=== PATIENT | female | born 1980 | race Caucasian/White ===

== ENCOUNTER 2018-12-18 18:27 | Inpatient (IN) | payer OTHER, SELFPAY ==
[2018-12-18 18:28] VITALS: BP 136/78; PULSE 96; RESP 16; TEMP 36.5; BMI 26.9
--- NOTE | 2018-12-18 19:17 | CT_ITS ---
We are attempting to reach an attending provider to discuss findings. An addendum with communication details will be sent when the communication is complete. STUDY: CT ABDOMEN AND PELVIS WITHOUT CONTRAST REASON FOR EXAM: Female, 38 years old. Right lower quadrant pain RADIATION DOSAGE (If Supplied By Facility): DLP = ( 315.65 ) mGycm TECHNIQUE: Transaxial images were obtained from the dome of the diaphragm to the symphysis pubis without oral contrast, and without intravenous contrast. Sagittal and coronal images were reconstructed. Individualized dose optimization techniques were used for this CT. COMPARISON: None. FINDINGS: Evaluation of the abdominal viscera is limited in the absence of intravenous contrast. Bibasilar atelectasis is present. The visualized portions of the heart and pericardium are within normal limits. The gallbladder has been removed. The liver demonstrates an unremarkable unenhanced appearance. The spleen is normal in size. The pancreas demonstrates an unremarkable unenhanced appearance. The adrenal glands are within normal limits. There are no obstructing renal stones. There is no hydronephrosis. Normal visualized stomach. There is no bowel obstruction or inflammation. There is increased diameter of the appendix measuring 1.4 cm, with a thickened wall, an appendicolith, and periappendiceal inflammatory changes. There is trace pelvic free fluid and trace right lower quadrant free fluid. The aorta is normal in caliber. There is no abdominal or pelvic free air, fluid collection or lymphadenopathy. There are no destructive osseous lesions. CT/Abdomen/Pelvis without Cont IMPRESSION: Acute appendicitis as detailed above. Electronically Signed: Malvin Dickerson, at 20:29 EDT Tel , Service support ,
[2018-12-18 19:29] LABS: Bacteria 0 SEEN /hpf (None Seen); Mucous, Urine 0 SEEN /hpf (<or=2+); White Blood Cells 0 SEEN /hpf (0-5)
[2018-12-18 19:44] LABS: Color, Urine Yellow (Yellow); Glucose, Dipstick Normal (Normal); Ketone-Dipstick Negative (Negative); Leukocyte Esterase-Dipstick Negative /ul (Negative); Nitrite-Dipstick Negative (Negative); Occult Blood-Urine 25 /ul (Negative); Protein-Dipstick Negative (Negative); Specific Gravity, Urine 1.005 (1.002-1.030); Urine Bilirubin Dipstick Negative (Negative); Urine Clarity Clear (Clear); Urine Urobilinogen Normal (Normal)
[2018-12-18] MEDS: Morphine 4 MG/ML Syringe IV (19:45)
[2018-12-18] MEDS: Ondansetron 4 MG/2 ML Vial IV (19:45)
[2018-12-18] MEDS: 0.9% Normal Saline 1,000 ML 1000 ML IV (19:45)
[2018-12-18 19:52] LABS: Red Blood Cells-Urine 0-5 SEEN /hpf (0-5); Squamous Epithelial Cells - UA 0-5 SEEN /hpf (5-10)
[2018-12-18 19:57] LABS: Internal QC Validated? YES +Cl - CLEAR BKGD; Pregnancy, Serum, hCG Quali. NEGATIVE Negative
[2018-12-18 19:59] LABS: Absolute Lymphocyte Count 4.64 X10^3/uL (0.83-4.51); Absolute Neutrophil Count 18.6 X10^3/uL (2.0-7.7); Basophil# 0.08 X10^3/uL; Basophil% 0.3 % (0-1); Eosinophil# 0.16 X10^3/uL; Eosinophils% 0.6 % (0-5); Hematocrit 38.8 % (37-47); Hemoglobin 13.1 g/dL (12.0-15.0); Lymphocyte # 4.64 X10^3/ul (4.0); Lymphocyte % 18.7 % (19-41); Mean Corp Hgb Conc 33.8 g/dL (32-36); Mean Corpuscular Hgb 33.2 pg (27.0-32.0); Mean Corpuscular Volume 98.5 fL (81-99); Mean Platelet Vol. 11.6 fl (6.2-12.0); Monocyte# 1.13 X10^3/uL; Monocyte% 4.6 % (0-10); NRBC Flagged by Analyzer 0 % (0-5); Neutrophil # 18.61 X10^3/uL (2.7-7.7); Neutrophil % 75.3 % (47-70); Platelet Count 268 K/mm3 (150-450); RBC Distribution Width CV 13.1 % (11.6-14.6); RBC Distribution Width SD 46.8 fl (35.1-43.9); Red Blood Count 3.94 M/mm3 (4.2-5.4); White Blood Count 24.8 K/mm3 (4.4-11.0)
[2018-12-18 20:04] LABS: ALB/GLOB Ratio 0.8 RATIO (0.9-2.4); AST(SGOT) 10 U/L (15-37); Alanine Aminotransfer ALT/SGPT 11 U/L (13-56); Albumin, Serum 3.4 g/dL (3.2-5.0); Alkaline Phosphatase 77 U/L (45-117); Anion Gap 3 (5-15); BUN 5 mg/dL (7-18); BUN/Creat Ratio 6.4 RATIO (10-20); Calcium,Total 8.9 mg/dL (8.5-10.1); Chloride 107 mmol/L (98-107); Creatinine, Serum 0.78 mg/dL (0.55-1.02); EST Glomerular Filtration Rate 87 mL/min (>60); Est Glom Filt Rate - Afr Amer 105 mL/min (>60); Estimated Creatinine Clearance 72.35 ml/min; Globulin 4.2 g/dL (2.2-4.2); Glucose 82 mg/dL (74-106); Potassium 3.9 mmol/L (3.5-5.1); Protein, Total 7.6 g/dL (6.4-8.2); Sodium Level 137 mmol/L (136-145)
--- NOTE | 2018-12-18 20:39 | ED.VISSUMM ---
- ER Visit Summary Date of Service: 12/18/18 Chief Complaint: Lower abdominal pain History of Present Illness: The patient is a 38 F who presents with lower abdominal pain that is been getting worse over the past couple days. Patient states her pain is sharp and cramping at times. Patient states it is a constant dull ache but sharp and cramping at times. Patient states the pain began diffusely but is now worse in the lower abdomen and worse on the right. Patient states the pain is worse with coughing. Patient admits to nausea but denies any vomiting. Patient states she did have an episode of diarrhea today. Patient states she has a history of ovarian cyst and thinks this is related to her ovary. Physical Examination: Vital signs are stable. Patient is afebrile. Patient is in no acute distress. Oral mucosa is pink and moist. Neck is supple. Trachea is midline. There is no JVD noted. Heart was regular rate and rhythm. Lungs are clear and equal bilaterally. Abdomen is soft. Bowel sounds are normal. There is diffuse tenderness but worse in the right lower quadrant. There is pain with internal and external rotation of the right lower extremity. There is a Rovsing sign noted. Cranial nerves II through XII are intact. There are no focal motor or sensory deficits noted. Test Results: CBC showed leukocytosis of 24.8. Metabolic profile was within normal limits. Urinalysis does not show any evidence of urinary tract infection. CT scan of the abdomen and pelvis was obtained and shows evidence of appendicitis. The appendix is measuring 1.4 cm with a thickened wall, and appendicolith, and periappendiceal inflammatory changes. Emergency Department Course and Treatment: Patient was given IV fluids, morphine, and Zofran here. Patient was feeling better on reevaluation. Patient was advised of the findings. Patient stated that her mom sees Dr. Hernandez for general surgery and she is requesting to see him. He is corrections sergeant tonight. I discussed the case with Dr. Hernandez. He will be in to evaluate the patient. Disposition: Admit to hospital Impression: Acute appendicitis This note was generated with [employer] dictation software. It may contain incorrect words, spelling, and punctuation that were not noted in review of the chart prior to signing ED Disposition - Plan for ED Patient: Disposition: Acute Care Hospital [facility] Diagnosis: Acute appendicitis Referrals: [facility] Doctor,Out of [Primary Care Provider] -
--- NOTE | 2018-12-18 21:02 | PCM.HP.STD ---
Problem List (1) Acute appendicitis Status: Acute Qualifiers: Acute appendicitis type: with localized peritonitis Appendicitis gangrene presence: unspecified whether gangrene present Appendicitis perforation presence: unspecified whether perforation present Appendicitis abscess presence: unspecified whether abscess present Qualified Code(s): K35.30 - Acute appendicitis with localized peritonitis, without perforation or gangrene History of Present Illness Date of Admission: 12/18/18 The patient is a 38 year old F who presents to the [facility] emergency room with almost a 1 week history of right lower quadrant abdominal pain. She has not been globally feeling well for at least 3 weeks. She is being treated by her primary care physician for a left breast abscess. She was placed on clindamycin 300 mg orally twice daily and she completed that medicine 2 days ago. She is to have a left breast ultrasound per her primary care physician with ongoing primary care follow-up. Because of severe right lower quadrant pain that is progressed over several days she presented to the emergency room here tonight.Her CT scan demonstrates a markedly inflamed appendix very thick-walled appendix with a appendicolith. There is periappendiceal inflammatory changes. There is free fluid in the pelvis. To make matters even more complicated the patient has had a previous incisional hernia repaired at the umbilical level with mesh. That was done in [facility]. Apparently there were complications and she had a redo operation to remove the mesh. She is also had a laparoscopic cholecystectomy she is also had a tubal ligation. She is at least a 1 pack/day cigarette smoker. Her laboratories dramatically abnormal with a white blood cell count of 24.8 hemoglobin 13.1 hematocrit 38.8 platelet count 268,075% neutrophils 18% lymphocytes. Her BUN is 5 and creatinine 0.78. Urinalysis is not remarkable. Past Medical History Allergies Iodinated Contrast- Oral and IV Dye Allergy (Verified 12/18/18 18:31) Hives Home Medications: Ambulatory Orders Medication Instructions Recorded NK 12/18/18 Surgical History: cholecystectomy, herniorrhaphy, - - Tubal ligation, hernia mesh removal Smoking Status: Current every day smoker Review of Systems Constitutional: Reports: Fever, Malaise, Weakness HEENT: Denies: Difficulty Swallowing Cardiovascular: Denies: Chest Pain Respiratory: Reports: Cough - Chronic Gastrointestinal: Reports: Abdominal Pain, Constipation Endocrine: Denies: Change in Body Habitus VTE Information - Inpt Only VTE Present on Admission: No Patient Problems: Active and Suspected Problems Acute appendicitis (Acute) - Physical Exam General: Alert, - - Patient appears very uncomfortable HEENT: Atraumatic Oral: Dry Mucosa Neck: Supple Lungs: - - Increased anterior posterior diameter, clear in the apices, diminished in the bases Cardiovascular: Regular rate, Regular Rhythm Abdomen: Bowel Sounds Present, Soft, Distended, Tender - Tender to light palpation of the right lower quadrant with guarding and rebound Healed vertical incision at the umbilicus very broad extending from superior to the umbilicus to inferiorly. Healed vertical incision in the mid epigastrium healed transverse incision right upper quadrant Extremities: No Calf Tenderness Skin: No rashes Psych/Mental Status: Flat Affect Vital Signs Temp Pulse Resp BP 97.7 F L 96 16 136/78 H 12/18/18 18:28 12/18/18 18:28 12/18/18 18:28 12/18/18 18:28 Weight: 142 lb 6.698 oz Body Mass Index (BMI) 26.9 Laboratory Tests Past 24 Hrs 12/18/18 12/18/18 12/18/18 18:40 19:30 19:30 WBC 24.8 H RBC 3.94 L Hgb 13.1 Hct 38.8 MCV 98.5 MCH 33.2 H MCHC 33.8 RDW Std Deviation 46.8 H RDW Coeff of Michelle 13.1 Plt Count 268 MPV 11.6 Immature Gran % (Auto) 0.500 Neut % (Auto) 75.3 H Lymph % (Auto) 18.7 L [place] % (Auto) 4.6 Eos % (Auto) 0.6 Baso % (Auto) 0.3 Absolute Neuts (auto) 18.6 H Absolute Lymphs (auto) 4.64 H Nucleated RBC % 0 Sodium 137 Potassium 3.9 Chloride 107 Carbon Dioxide 27.0 Anion Gap 3 L BUN 5 L Creatinine 0.78 Estim Creat Clear Calc 72.35 Est GFR (MDRD) Af Amer 105 Est GFR (MDRD) Non-Af 87 BUN/Creatinine Ratio 6.4 L Glucose 82 Calcium 8.9 Total Bilirubin 0.50 AST 10 L ALT 11 L Alkaline Phosphatase 77 Total Protein 7.6 Albumin 3.4 Globulin 4.2 Albumin/Globulin Ratio 0.8 L Serum , Qual Urine Color Yellow Urine Clarity Clear Urine pH 6.0 Ur Specific [place] 1.005 Urine Protein Negative Urine Glucose (UA) Normal Urine Ketones Negative Urine Occult Blood 25 H Urine Nitrite Negative Urine Bilirubin Negative Urine Urobilinogen Normal Ur Leukocyte Esterase Negative Urine RBC 0-5 SEEN Urine WBC 0 SEEN Ur Squamous Epith Cells 0-5 SEEN Urine Bacteria 0 SEEN Urine Mucus 0 SEEN 12/18/18 19:30 WBC RBC Hgb Hct MCV MCH MCHC RDW Std Deviation RDW Coeff of Michelle Plt Count MPV Immature Gran % (Auto) Neut % (Auto) Lymph % (Auto) [place] % (Auto) Eos % (Auto) Baso % (Auto) Absolute Neuts (auto) Absolute Lymphs (auto) Nucleated RBC % Sodium Potassium Chloride Carbon Dioxide Anion Gap BUN Creatinine Estim Creat Clear Calc Est GFR (MDRD) Af Amer Est GFR (MDRD) Non-Af BUN/Creatinine Ratio Glucose Calcium Total Bilirubin AST ALT Alkaline Phosphatase Total Protein Albumin Globulin Albumin/Globulin Ratio Serum , Qual NEGATIVE Urine Color Urine Clarity Urine pH Ur Specific [place] Urine Protein Urine Glucose (UA) Urine Ketones Urine Occult Blood Urine Nitrite Urine Bilirubin Urine Urobilinogen Ur Leukocyte Esterase Urine RBC Urine WBC Ur Squamous Epith Cells Urine Bacteria Urine Mucus Assessment/Plan All Active Problems Acute appendicitis (Acute) Findings are consistent with severe acute appendicitis with concern over localized peritonitis and possible gangrene and rupture. In addition she has a hostile abdomen with history of ventral incisional hernia repair with mesh with subsequent mesh removal. She has a ongoing chronic tobacco smoker placing her at increased pulmonary and DVT risk. We will initiate IV antibiotics. I discussed with her the potential for a laparoscopic appendectomy. She is aware of the increased difficulty gaining clean access to the abdomen. She is aware that extensive adhesions may be encountered. She is aware that conversion to an open procedure may be required. She is aware that partial colectomy may be required. She is aware that simple drainage may be performed. She has had an opportunity to ask and have questions answered. We will proceed tonight as OR staffing permits. Alfonso Hernandez M.D., F.A.C.S.
[2018-12-18 21:11] VITALS: BP 146/88; PULSE 93; RESP 18; TEMP 37.3; O2SAT 99
[2018-12-18 21:12] VITALS: BP 146/88; PULSE 93; RESP 18; TEMP 37.3; O2SAT 99; BMI 26.9
--- NOTE | 2018-12-18 21:45 | APP_PTH ---
PATIENT: MINERVA BERGER LOC: MS3 U#:[id number] AGE/SX: 38/F ROOM: [facility] RE12/18/[address]: Dr. Alfonso Hernandez MD : 1980 BED: 1 DIS: 12/23/2018 SPEC #: [id number] RECD: 12/19/18 08:19 STATUS: POLA ABNER #: [id number] JEFFERY: 12/18/18 21:[address]: Alfonso Hernandez DEPT: SURGICAL PATHOLOGY RECD BY: Yaya Lester ENTERED: 12/19/18 09:39 SP TYPE: APPENDIX OTHR DR: No Primary Care Phys Tissues: Appendix, NOS Procedures: Surgery Specimen Level III HEADER OPERATION: Laparoscopic appendectomy PRE-OP DIAGNOSIS: Acute appendicitis TISSUE SUBMITTED: Appendix MICROSCOPIC DIAGNOSIS Appendix: Acute appendicitis and periappendicitis. SJ:frandy 12/20/18 MICROSCOPIC DESCRIPTION Slides are reviewed. GROSS DESCRIPTION Received is one container labeled with the patient's name and designated appendix. The specimen consists of an appendix measuring 6 cm in length and up to 1 cm in diameter. The attached periappendiceal adipose tissue measures up to 1.5 cm in width. The serosa is congested and appear hemorrhagic. No obvious perforation is identified. The lumen does not contain any fecalith. Pharmacy Customer Care Specialist sections are submitted in one cassette. / SJ:frandy 12/19/18 TC:2 CPT: 30802
--- NOTE | 2018-12-18 22:09 | PCM.DC.GS ---
Discharge Diet: Light diet - advance as tolerated - if you have questions about your diet instructions, please talk to you doctor. Discharge Activity: May Not Drive - for 3-5 days or while taking narcotic pain medicine. May shower in (days): 0 - May shower now Lifting Restrictions: 10 pounds Call your doctor if your incision/area has: Continuous Slow Oozing, Sudden Increased Bleeding, Increased Pain/ Swelling, Increased Redness, Foul Smelling Discharge Call your doctor if you observe: Fever of 101 or Higher Suture Line Care: Avoid Pulling/Pushing, Avoid Pinching/Bending Additional Dressing/Incision Instructions:: Change or remove dressing in 2 days. Leave steri-strips in place for 1 week. Allergies/Adverse Reactions: Allergies Iodinated Contrast- Oral and IV Dye Allergy (Verified 12/18/18 18:31) Hives Medications to take at Discharge Amoxicillin/Potassium Clav [Augmentin 875-125 Tablet] 1 ea PO BID #10 tab 12/21/18 Hydrocodone Bitart/Apap 5-325 [[place] 5MG-325MG] 1 tablet PO Q4H PRN PRN 3 Days #10 tablet 12/21/18 The following prescriptions were given: Amoxicillin/Potassium Clav [Augmentin 875-125 Tablet] 1 ea PO BID #10 tab Transmission Status: Pending to [facility] Hydrocodone Bitart/Apap 5-325 [[place] 5MG-325MG] 1 tablet PO Q4H PRN PRN 3 Days #10 tablet PRN Reason: Pain Transmission Status: Sent to [facility] Primary Care Physician: [facility] Doctor,Out of [Primary Care Provider] - Test Results: Test results from this visit will be discussed in further detail at your follow-up appointment, if applicable. Please Follow Up With: Alfonso Hernandez MD - [phone] When: Call to make an appointment to be seen in about 7-10 days.
[2018-12-18] MEDS: Bupivacaine Mpf 0.5% 30 ML VIAL (22:57)
--- NOTE | 2018-12-18 23:01 | OP.PCM_ITS ---
Problem List (1) Acute appendicitis Status: Acute Qualifiers: Acute appendicitis type: with localized peritonitis Appendicitis gangrene presence: with gangrene Appendicitis perforation presence: with perforation Appendicitis abscess presence: without abscess Qualified Code(s): K35.32 - Acute appendicitis with perforation and localized peritonitis, without abscess Report of Operation Date of Procedure: 12/18/18 Pre-Operative Diagnosis: Acute appendicitis Post-Operative Diagnosis: Acute appendicitis with feculent peritonitis and local perforation and stool feculent soilage Surgery/Procedure Performed:: Laparoscopic appendectomy Description of Surgical Findings:: Timeout and informed consent was obtained. 38-year-old female stepped out from placement table underwent general endotracheal intubation anesthesia. She had been started on therapeutic Zosyn 4.5 g intravenously preoperatively. The M sterilely prepped draped. 0.5% Marcaine was used as local anesthetic. Throughout the procedure 30 cc was used. Skin sites were pre-anesthetized. The right upper quadrant made a 5 mm transverse incision used a straight 5 scope and Visiport technology to get clean access to the abdomen. The abdomen was insufflated with CO2 to pressure of 10 to smoker pressure. The patient had previous extensive mesh repair of the ventral incisional hernia base of the umbilicus with then removal of mesh. Incredibly there were no adhesions to this area. A vertical incision was made inferior to the umbilicus and a telemeter trocar was inserted. A 5 Connors trocar was placed suprapubically. The appendix was grossly distended and thick-walled. There was adherence to the anterior abdominal wall and adherence to the terminal ileum. Blunt dissection was used to free this and then there was feculent soilage perforation noted of the appendix with an appendicolith left emanating there from an free stool soilage. A 60 mm [place] was used to transect the Guerrero at the cecal base. The cecal tissue was indurated. I placed the stapler and the only position that I could achieve with resecting the bulk of the appendix and still trying to get back to the [place] healthy cecal tissue. All of the surrounding tissues were markedly indurated and inflamed and thickened. The [place] was used with a gold load to transect this area and a white load to transect the mesoappendix. The appendix was placed in a retrieval bag and then the appendicolith was placed in the collection bag. The feculent material in the right lower quadrant was aspirated and then gently irrigated free. There was no remaining abscess cavity. As much of possible the feculence soilage was aspirated and removed. The appendix and removed at the umbilicus slight fascial enlargement was required. Greater omentum was placed overlying the resection area. Trochars were removed and visualization the abdomen was allowed to deflate of the CO2. The fascia at the umbilicus approximated with a [id number] suture of 0 Nurolon. Skin edges approximate interrupted 4 Monocryl subdermal stitches. Steri-Strips Telfa and OpSite dressings applied. Sponge and instrument and needle counts reported the surgeon be correct. Blood loss was minimal. She tolerated the procedure well was taken to the recovery area in satisfactory condition without apparent complication. Specimens appendix. Drains none. Blood loss minimal. Alfonso Hernandez M.D., F.A.C.S. Type of Anesthesia:: General Anesthesiologist: Rob Sepulveda
[2018-12-18 23:22] VITALS: BP 121/69; BP 146/88; PULSE 92; RESP 16; TEMP 36.4; O2SAT 90
[2018-12-18 23:30] VITALS: BP 126/71; BP 146/88; PULSE 81; RESP 16; O2SAT 94
[2018-12-18 23:45] VITALS: BP 134/71; BP 146/88; PULSE 78; RESP 16; O2SAT 95
[2018-12-19] VITALS (11 sets, daily range): BP systolic 103–146; BP diastolic 64–88; PULSE 76–100; RESP 16–24; TEMP 36.4–37.9; O2SAT 90–100; BMI 26.9
[2018-12-19] MEDS: Morphine 2 MG/ML Syringe IV ×3 (00:53→21:54)
[2018-12-19] MEDS: Ondansetron 4 MG/2 ML Vial IV ×2 (00:54→15:11)
[2018-12-19] MEDS: Morphine 4 MG/ML Syringe IV ×3 (02:01→06:02)
[2018-12-19] MEDS: Lactated Ringers 1,000 ML 90 ML IV (03:56)
[2018-12-19 06:06] LABS: Absolute Lymphocyte Count 1.99 X10^3/uL (0.83-4.51); Basophil# 0.04 X10^3/uL; Basophil% 0.1 % (0-1); Eosinophil# 0.01 X10^3/uL; Hematocrit 38.2 % (37-47); Hemoglobin 12.7 g/dL (12.0-15.0); Lymphocyte # 1.99 X10^3/ul (4.0); Lymphocyte % 7.1 % (19-41); Mean Corp Hgb Conc 33.2 g/dL (32-36); Mean Corpuscular Hgb 33.6 pg (27.0-32.0); Mean Corpuscular Volume 101.1 fL (81-99); Mean Platelet Vol. 11.6 fl (6.2-12.0); Monocyte% 2.9 % (0-10); NRBC Flagged by Analyzer 0 % (0-5); Neutrophil # 24.96 X10^3/uL (2.7-7.7); Neutrophil % 89.2 % (47-70); POSITIVE DIFFERENTIAL YES; Platelet Count 255 K/mm3 (150-450); RBC Distribution Width CV 13.2 % (11.6-14.6); RBC Distribution Width SD 49.1 fl (35.1-43.9); Red Blood Count 3.78 M/mm3 (4.2-5.4)
--- NOTE | 2018-12-19 06:08 | PN.SURG_ITS ---
Patient Problems: Active and Suspected Problems Acute appendicitis (Acute) Subjective: Pt very sore this a.m., no nausea, no flatus - Physical Exam Lungs: Clear to auscultation Abdomen: Soft, Bowel Sounds Not Present, Distended, Tender Vital Signs Temp Pulse Resp BP Pulse Ox 99.3 F H 95 18 129/71 H 94 12/19/18 04:07 12/19/18 04:07 12/19/18 04:07 12/19/18 04:07 12/19/18 04:07 Oxygen Flow Rate (L/min) 2 Oxygen Delivery Method Nasal Cannula Weight: 142 lb 6.698 oz Body Mass Index (BMI) 26.9 Intake and Output for Last 24 Hours 12/17/18 12/18/18 12/19/18 23:59 23:59 23:59 Intake Total 1400 / 1400 Balance 1400 / 1400 Laboratory Tests Past 24 Hrs 12/18/18 12/18/18 12/18/18 18:40 19:30 19:30 WBC 24.8 H RBC 3.94 L Hgb 13.1 Hct 38.8 MCV 98.5 MCH 33.2 H MCHC 33.8 RDW Std Deviation 46.8 H RDW Coeff of Michelle 13.1 Plt Count 268 MPV 11.6 Immature Gran % (Auto) 0.500 Neut % (Auto) 75.3 H Lymph % (Auto) 18.7 L [place] % (Auto) 4.6 Eos % (Auto) 0.6 Baso % (Auto) 0.3 Absolute Neuts (auto) 18.6 H Absolute Lymphs (auto) 4.64 H Nucleated RBC % 0 Sodium 137 Potassium 3.9 Chloride 107 Carbon Dioxide 27.0 Anion Gap 3 L BUN 5 L Creatinine 0.78 Estim Creat Clear Calc 72.35 Est GFR (MDRD) Af Amer 105 Est GFR (MDRD) Non-Af 87 BUN/Creatinine Ratio 6.4 L Glucose 82 Calcium 8.9 Total Bilirubin 0.50 AST 10 L ALT 11 L Alkaline Phosphatase 77 Total Protein 7.6 Albumin 3.4 Globulin 4.2 Albumin/Globulin Ratio 0.8 L Serum , Qual Urine Color Yellow Urine Clarity Clear Urine pH 6.0 Ur Specific [place] 1.005 Urine Protein Negative Urine Glucose (UA) Normal Urine Ketones Negative Urine Occult Blood 25 H Urine Nitrite Negative Urine Bilirubin Negative Urine Urobilinogen Normal Ur Leukocyte Esterase Negative Urine RBC 0-5 SEEN Urine WBC 0 SEEN Ur Squamous Epith Cells 0-5 SEEN Urine Bacteria 0 SEEN Urine Mucus 0 SEEN 12/18/18 12/19/18 19:30 05:16 WBC Pending RBC Pending Hgb Pending Hct Pending MCV Pending MCH Pending MCHC Pending RDW Std Deviation Pending RDW Coeff of Michelle Pending Plt Count Pending MPV Immature Gran % (Auto) Neut % (Auto) Pending Lymph % (Auto) [place] % (Auto) Eos % (Auto) Baso % (Auto) Absolute Neuts (auto) Pending Absolute Lymphs (auto) Nucleated RBC % Sodium Potassium Chloride Carbon Dioxide Anion Gap BUN Creatinine Estim Creat Clear Calc Est GFR (MDRD) Af Amer Est GFR (MDRD) Non-Af BUN/Creatinine Ratio Glucose Calcium Total Bilirubin AST ALT Alkaline Phosphatase Total Protein Albumin Globulin Albumin/Globulin Ratio Serum , Qual NEGATIVE Urine Color Urine Clarity Urine pH Ur Specific [place] Urine Protein Urine Glucose (UA) Urine Ketones Urine Occult Blood Urine Nitrite Urine Bilirubin Urine Urobilinogen Ur Leukocyte Esterase Urine RBC Urine WBC Ur Squamous Epith Cells Urine Bacteria Urine Mucus Medical Necessity - Tobacco Use Smoking Status: Current every day smoker Assessment/Plan All Active Problems Acute appendicitis (Acute) Fecal peritonitis from acute appendicitis duration nearly one week Will mobilize pt Keep on sips/chips for now Await labs
[2018-12-19] MEDS: 0.9% Normal Saline 1,000 ML 75 ML IV ×2 (06:14→18:00)
[2018-12-19 06:27] LABS: Differential Indicated SCAN CRITERIA MET
[2018-12-19 06:55] LABS: Differential Comment SCANNED
[2018-12-19] MEDS: 0.9% NaCl Peripheral Flush Adult/Peds IV ×2 (10:05→15:11)
[2018-12-19] MEDS: Ketorolac 15 MG/ML Vial IV (10:05)
--- NOTE | 2018-12-19 13:07 | CPS ---
STARTED BY NURSING
[2018-12-19 14:15] LABS: Absolute Lymphocyte Count 2.86 X10^3/uL (0.83-4.51); Absolute Neutrophil Count 23.2 X10^3/uL (2.0-7.7); Basophil# 0.06 X10^3/uL; Basophil% 0.2 % (0-1); Eosinophil# 0.04 X10^3/uL; Eosinophils% 0.1 % (0-5); Hematocrit 37.4 % (37-47); Hemoglobin 12.2 g/dL (12.0-15.0); Lymphocyte # 2.86 X10^3/ul (4.0); Lymphocyte % 10.5 % (19-41); Mean Corp Hgb Conc 32.6 g/dL (32-36); Mean Corpuscular Hgb 33.2 pg (27.0-32.0); Mean Corpuscular Volume 101.6 fL (81-99); Monocyte# 1.08 X10^3/uL; NRBC Flagged by Analyzer 0 % (0-5); Neutrophil # 23.15 X10^3/uL (2.7-7.7); Neutrophil % 84.7 % (47-70); POSITIVE DIFFERENTIAL YES; Platelet Count 233 K/mm3 (150-450); RBC Distribution Width CV 13.2 % (11.6-14.6); Red Blood Count 3.68 M/mm3 (4.2-5.4); White Blood Count 27.3 K/mm3 (4.4-11.0)
[2018-12-19 14:19] LABS: Differential Indicated SCAN CRITERIA MET
[2018-12-19 14:50] LABS: Differential Comment SCANNED
[2018-12-19 14:51] LABS: Platelet Estimate ADEQUATE (ADEQ)
--- NOTE | 2018-12-19 15:10 | CASEMGMT ---
SW assisted pt in completing LW/POA forms, she listed her mother Noni Tatum as POA. SW placed copies in the chart and gave pt the originals with copies. Pt and pt's mother also had inquired about getting short term disability papers completed. SW called the surgery office and left a message. MARIAM received a message back from Dr. Hernandez's nurse stating that they can assist in completing these forms and that a family member can walk the forms over to their office. SW let pt and pt's mother know this information, pt's mother plans to bring the forms over later today. JENNIFER Lee
--- NOTE | 2018-12-19 15:38 | CASEMGMT ---
RN DANY NUTRITION TECH CM to room to meet with patient for initial transition planning/care coordination assessment. BRANDON SAENZ introduced self and role at [facility]. Pt voices understanding and consents to assessment at this time. Pt sitting up in recliner chair in no distress at this time. Pt is A/O at this time and answers all questions appropriately. Care providers, pharmacy, and demographics verified/updated at this time. PCP: Dr Dahlia Bustillo @ [facility] in [place], [place] Specialists: denies Preferred Pharmacy/Prescription benefit: [facility]. States does not have her prescription card with her but will check with her family to see if they can bring in. States usually goes to [facility] in [place] and that they would have her prescription card information there. Insurance: MMO Living Will/HPOA: Does not have either. Is interested in talking with SW. MARIAM Keyes, notified. LNOK: Mom and dad Living Arrangements: Lives alone. Independent. Transportation: Pt states drives self and states no transportation concerns at this time. States her mom or dad will drive her home @ d/c. DME: Denies using any DME and denies needs. HHC/SNF: No history of either and no needs identified. Pt wishes to return home and states has no concerns with going home at time of discharge. Pt states she smokes 1PPD. [facility] is interested in smoking cessation info. Given Smoking Cessation Rac Card CM to follow for any discharge planning/needs. Pt voices no further concerns/needs at this time. Advised pt to ask for CM if any further questions/concerns/needs arise. Voices understanding. PLAN: Home w/family support and discharge plans in place. Nitin GORDON RN, CM
--- NOTE | 2018-12-19 17:38 | PCM.PN.BLA ---
Progress Note Low grade fever, quite painful, not mobilizing well, no nausea, no flatus Leukocytosis Pt has colitis of the cecum secondary to adjacent involvement and had fecal soilage Continue intensive antibiotics and bowel rest. Check labs in a.m. Mobilize pt Encourage IS
[2018-12-19] MEDS: Acetaminophen 325 MG Tablet 650 MG PO (22:04)
[2018-12-20] VITALS (7 sets, daily range): BP systolic 105–125; BP diastolic 57–69; PULSE 90–120; RESP 18–22; TEMP 36.8–37.7; O2SAT 94–97
[2018-12-20] MEDS: Morphine 2 MG/ML Syringe IV ×2 (00:25→02:33)
[2018-12-20 05:12] LABS: Absolute Lymphocyte Count 2.85 X10^3/uL (0.83-4.51); Absolute Neutrophil Count 18.6 X10^3/uL (2.0-7.7); Basophil# 0.04 X10^3/uL; Basophil% 0.2 % (0-1); Eosinophil# 0.09 X10^3/uL; Eosinophils% 0.4 % (0-5); Hematocrit 34.5 % (37-47); Hemoglobin 11.2 g/dL (12.0-15.0); Lymphocyte # 2.85 X10^3/ul (4.0); Lymphocyte % 12.4 % (19-41); Mean Corp Hgb Conc 32.5 g/dL (32-36); Mean Corpuscular Hgb 33.3 pg (27.0-32.0); Mean Corpuscular Volume 102.7 fL (81-99); Monocyte# 1.26 X10^3/uL; Monocyte% 5.5 % (0-10); NRBC Flagged by Analyzer 0 % (0-5); Platelet Count 224 K/mm3 (150-450); RBC Distribution Width CV 13.2 % (11.6-14.6); RBC Distribution Width SD 49.9 fl (35.1-43.9); Red Blood Count 3.36 M/mm3 (4.2-5.4)
[2018-12-20 05:37] LABS: Anion Gap 10 (5-15); BUN 4 mg/dL (7-18); BUN/Creat Ratio 7.2 RATIO (10-20); Chloride 109 mmol/L (98-107); Creatinine, Serum 0.55 mg/dL (0.55-1.02); EST Glomerular Filtration Rate 128 mL/min (>60); Est Glom Filt Rate - Afr Amer 155 mL/min (>60); Glucose 66 mg/dL (74-106); Potassium 3.7 mmol/L (3.5-5.1); Sodium Level 140 mmol/L (136-145)
--- NOTE | 2018-12-20 06:06 | PCM.PN.SRG ---
Patient Problems: Active and Suspected Problems Acute appendicitis (Acute) Subjective: No nausea, no vomiting, still very sore and tender - Physical Exam General: - - lethargic Lungs: Diminished - bases, - Abdomen: Hypoactive Bowel Sounds, Distended, Tender Vital Signs Temp Pulse Resp BP Pulse Ox 99.3 F H 90 22 H 116/66 97 12/20/18 02:03 12/20/18 02:30 12/20/18 02:30 12/20/18 02:03 12/20/18 02:30 Oxygen Flow Rate (L/min) 2 Oxygen Delivery Method Nasal Cannula Weight: 142 lb 6.698 oz Body Mass Index (BMI) 26.9 Intake and Output for Last 24 Hours 12/18/18 12/19/18 12/20/18 23:59 23:59 23:59 Intake Total 3763 / 3763 620 / 620 Output Total 1850 / 1850 300 / 300 Balance 1913 / 191 320 / 320 Laboratory Tests Past 24 Hrs 12/19/18 12/19/18 12/20/18 05:16 14:05 05:00 WBC 28.0 H 27.3 H 23.0 H RBC 3.78 L 3.68 L 3.36 L Hgb 12.7 12.2 11.2 L Hct 38.2 37.4 34.5 L MCV 101.1 H 101.6 H 102.7 H MCH 33.6 H 33.2 H 33.3 H MCHC 33.2 32.6 32.5 RDW Std Deviation 49.1 H 50.0 H 49.9 H RDW Coeff of Michelle 13.2 13.2 13.2 Plt Count 255 233 224 MPV 11.6 11.0 11.0 Immature Gran % (Auto) 0.700 0.500 0.500 Neut % (Auto) 89.2 H 84.7 H 81.0 H Lymph % (Auto) 7.1 L 10.5 L 12.4 L [place] % (Auto) 2.9 4.0 5.5 Eos % (Auto) 0.0 0.1 0.4 Baso % (Auto) 0.1 0.2 0.2 Absolute Neuts (auto) 25.0 H 23.2 H 18.6 H Absolute Lymphs (auto) 1.99 2.86 2.85 Nucleated RBC % 0 0 0 Differential Comment SCANNED SCANNED Platelet Estimate ADEQUATE Sodium Potassium Chloride Carbon Dioxide Anion Gap BUN Creatinine Estim Creat Clear Calc Est GFR (MDRD) Af Amer Est GFR (MDRD) Non-Af BUN/Creatinine Ratio Glucose Calcium 12/20/18 05:00 WBC RBC Hgb Hct MCV MCH MCHC RDW Std Deviation RDW Coeff of Michelle Plt Count MPV Immature Gran % (Auto) Neut % (Auto) Lymph % (Auto) [place] % (Auto) Eos % (Auto) Baso % (Auto) Absolute Neuts (auto) Absolute Lymphs (auto) Nucleated RBC % Differential Comment Platelet Estimate Sodium 140 Potassium 3.7 Chloride 109 H Carbon Dioxide 21.0 Anion Gap 10 BUN 4 L Creatinine 0.55 Estim Creat Clear Calc 102.60 Est GFR (MDRD) Af Amer 155 Est GFR (MDRD) Non-Af 128 BUN/Creatinine Ratio 7.2 L Glucose 66 L Calcium 8.0 L Medical Necessity - Tobacco Use Smoking Status: Current every day smoker Assessment/Plan All Active Problems Acute appendicitis (Acute) Leukocytosis slightly improved Renal fxn stable Will start clears
[2018-12-20] MEDS: HYDROcodone Bitartrate/Apap 5/325 Tablet PO ×3 (07:38→17:57)
[2018-12-20] MEDS: 0.9% Normal Saline 1,000 ML 30 ML IV (09:59)
--- NOTE | 2018-12-20 16:41 | PCM.PN.BLA ---
Progress Note Still on oxygen when supine Very slight amount of flatus Increased abdominal distention and diffuse tenderness Will re increase IVF. Hold at minimal clears
[2018-12-20] MEDS: Enoxaparin 40 MG/0.4 ML Syringe SC (17:11)
--- NOTE | 2018-12-20 19:50 | NURSING ---
Pt walked a full lap in the amador with the help of the WATERWORKS CHIEF ENGINEER. Pt returned to bed. Head of bed elevated, NC with 2 L oxygen, k-pad, and scd's applied. Asked pt used the IS. Pt used IS 10 times.
[2018-12-21] VITALS (8 sets, daily range): BP systolic 101–127; BP diastolic 54–73; PULSE 94–108; RESP 16–20; TEMP 36.7–37.2; O2SAT 92–99
--- NOTE | 2018-12-21 00:15 | NURSING ---
pt walked another full lap in the amador with the assistance of the GRAVITY PROSPECTING OBSERVER HELPER. returned to bed, head of bed elevated, scd's applied, nc 2L o2.
[2018-12-21] MEDS: 0.9% Normal Saline 1,000 ML 75 ML IV (03:57)
[2018-12-21] MEDS: HYDROcodone Bitartrate/Apap 5/325 Tablet PO ×2 (03:58→09:28)
--- NOTE | 2018-12-21 04:22 | NURSING ---
PT HAD A SMALL BOWEL MOVEMENT THIS MORNING. PT WALKED ANOTHER FULL LAP IN THE DASILVA WITH THE CASH APPLICATIONS COORDINATOR. PT RETURNED TO BED. HEAD OF BED ELEVATED, KPAD TO THE ABDOMEN, SCD'S APPLIED & NC 2 L OXYGEN. PT USED THE IS 10 TIMES.
[2018-12-21] MEDS: Enoxaparin 40 MG/0.4 ML Syringe SC (05:10)
--- NOTE | 2018-12-21 05:50 | PN.SURG_ITS ---
Patient Problems: Active and Suspected Problems Acute appendicitis (Acute) Objective: Some flatus, very small stool, less absolute pain and now generalized discomfort, no nausea - Physical Exam General: Alert, Oriented x3, Cooperative, No apparent distress Lungs: Clear to auscultation - apices, diminished in bases Abdomen: Bowel Sounds Present - more mild diffuse tenderness, dressings clean and dry, Soft Vital Signs Temp Pulse Resp BP Pulse Ox 98.9 F 97 16 112/64 98 12/21/18 03:53 12/21/18 03:53 12/21/18 03:53 12/21/18 03:53 12/21/18 03:53 Oxygen Flow Rate (L/min) 2 Oxygen Delivery Method Nasal Cannula Weight: 142 lb 6.698 oz Body Mass Index (BMI) 26.9 Intake and Output for Last 24 Hours 12/19/18 12/20/18 12/21/18 23:59 23:59 23:59 Intake Total 3763 / 3763 1454 / 2518 1539 / 1539 Output Total 1850 / 1850 800 / 1400 600 / 600 Balance 1912 / 1912 654 / 1118 939 / 939 Medical Necessity - Tobacco Use Smoking Status: Current every day smoker Assessment/Plan All Active Problems Acute appendicitis (Acute) Labs pending 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 Pt is strongly encouraged to cease Will advance to fulls Continue IV antibiotic Plan oral antibiotic after discharge
[2018-12-21 07:03] LABS: Absolute Lymphocyte Count 2.13 X10^3/uL (0.83-4.51); Absolute Neutrophil Count 21.1 X10^3/uL (2.0-7.7); Basophil# 0.03 X10^3/uL; Basophil% 0.1 % (0-1); Eosinophil# 0.09 X10^3/uL; Eosinophils% 0.4 % (0-5); Hematocrit 30.9 % (37-47); Hemoglobin 10.4 g/dL (12.0-15.0); Lymphocyte # 2.13 X10^3/ul (4.0); Lymphocyte % 8.7 % (19-41); Mean Corp Hgb Conc 33.7 g/dL (32-36); Mean Corpuscular Hgb 33.8 pg (27.0-32.0); Mean Corpuscular Volume 100.3 fL (81-99); Mean Platelet Vol. 11.7 fl (6.2-12.0); Monocyte# 0.92 X10^3/uL; Monocyte% 3.8 % (0-10); NRBC Flagged by Analyzer 0 % (0-5); Neutrophil # 21.12 X10^3/uL (2.7-7.7); Neutrophil % 86.4 % (47-70); POSITIVE DIFFERENTIAL YES; Platelet Count 240 K/mm3 (150-450); RBC Distribution Width CV 13.2 % (11.6-14.6); RBC Distribution Width SD 47.8 fl (35.1-43.9); Red Blood Count 3.08 M/mm3 (4.2-5.4); White Blood Count 24.4 K/mm3 (4.4-11.0)
[2018-12-21 07:17] LABS: Differential Indicated SCAN CRITERIA MET
[2018-12-21 07:58] LABS: Differential Comment SCANNED
[2018-12-21] MEDS: 0.9% NaCl IVPB Med Flush (250 mL) 15 ML IV (13:56)
[2018-12-21] MEDS: Acetaminophen 325 MG Tablet 650 MG PO (18:36)
[2018-12-22 00:13] VITALS: O2SAT 92
[2018-12-22] MEDS: Acetaminophen 325 MG Tablet 650 MG PO ×4 (02:44→21:22)
[2018-12-22 03:00] VITALS: BP 126/78; PULSE 92; RESP 18; TEMP 36.8; O2SAT 95
[2018-12-22] MEDS: Enoxaparin 40 MG/0.4 ML Syringe SC (06:01)
[2018-12-22 06:20] LABS: Absolute Lymphocyte Count 2.31 X10^3/uL (0.83-4.51); Absolute Neutrophil Count 14.7 X10^3/uL (2.0-7.7); Basophil# 0.03 X10^3/uL; Basophil% 0.2 % (0-1); Eosinophil# 0.22 X10^3/uL; Eosinophils% 1.2 % (0-5); Hematocrit 29.2 % (37-47); Hemoglobin 9.7 g/dL (12.0-15.0); Lymphocyte # 2.31 X10^3/ul (4.0); Lymphocyte % 12.6 % (19-41); Mean Corp Hgb Conc 33.2 g/dL (32-36); Mean Corpuscular Hgb 32.4 pg (27.0-32.0); Mean Corpuscular Volume 97.7 fL (81-99); Mean Platelet Vol. 11.4 fl (6.2-12.0); Monocyte# 0.93 X10^3/uL; Monocyte% 5.1 % (0-10); NRBC Flagged by Analyzer 0 % (0-5); Neutrophil # 14.69 X10^3/uL (2.7-7.7); Neutrophil % 80.4 % (47-70); Platelet Count 260 K/mm3 (150-450); RBC Distribution Width SD 46.4 fl (35.1-43.9); Red Blood Count 2.99 M/mm3 (4.2-5.4); White Blood Count 18.3 K/mm3 (4.4-11.0)
--- NOTE | 2018-12-22 08:38 | PN.SURG_ITS ---
Patient Problems: Active and Suspected Problems Acute appendicitis (Acute) Subjective: Patient had 2 bowel movements yesterday and one today. She reports that she is passing flatus. She tolerated full liquids with no nausea or vomiting. - Physical Exam General: Alert, Oriented x3 Neck: No JVD Lungs: Normal air movement Cardiovascular: Regular rate, Regular Rhythm Abdomen: Soft, Non-Distended, Tender - Tender in the right lower quadrant with no guarding or rebound Extremities: No clubbing Vital Signs Temp Pulse Resp BP Pulse Ox 98.2 F 92 18 126/78 H 95 12/22/18 03:00 12/22/18 03:00 12/22/18 03:00 12/22/18 03:00 12/22/18 03:00 Oxygen Flow Rate (L/min) 2 Oxygen Delivery Method Room Air Weight: 142 lb 6.698 oz Body Mass Index (BMI) 26.9 Intake and Output for Last 24 Hours 12/20/18 12/21/18 12/22/18 23:59 23:59 23:59 Intake Total 1454 / 2518 3202 / 3202 200 / 200 Output Total 800 / 1400 600 / 600 Balance 654 / 1118 2602 / 2602 200 / 200 Laboratory Tests Past 24 Hrs 12/22/18 05:15 WBC 18.3 H RBC 2.99 L Hgb 9.7 L Hct 29.2 L MCV 97.7 MCH 32.4 H MCHC 33.2 RDW Std Deviation 46.4 H RDW Coeff of Michelle 13.0 Plt Count 260 MPV 11.4 Immature Gran % (Auto) 0.500 Neut % (Auto) 80.4 H Lymph % (Auto) 12.6 L [place] % (Auto) 5.1 Eos % (Auto) 1.2 Baso % (Auto) 0.2 Absolute Neuts (auto) 14.7 H Absolute Lymphs (auto) 2.31 Nucleated RBC % 0 Medical Necessity - Tobacco Use Smoking Status: Current every day smoker Assessment/Plan All Active Problems Acute appendicitis (Acute) 38-year-old female perforated appendicitis 1. Patient appears to be doing well this morning. Her white count is decreasing. She tolerated full liquids. She is still having right lower quadrant pain but she is soft and non-guarding in the other quadrants. I will stop her IV fluids and advance her to regular diet. Continue antibiotics. Recheck white count in the morning. Continue to encourage ambulation. Ricky Thomas MD Pager: [facility] [address] [place] [address], [address] [place] [address] Office:
[2018-12-22 08:51] VITALS: BP 121/68; PULSE 88; RESP 18; TEMP 36.4; O2SAT 94
[2018-12-22] MEDS: 0.9% NaCl Peripheral Flush Adult/Peds IV ×2 (14:34→21:22)
[2018-12-22 14:46] VITALS: BP 111/70; PULSE 94; RESP 18; TEMP 37.7; O2SAT 92
[2018-12-22 20:38] VITALS: BP 114/78; PULSE 89; RESP 18; TEMP 37; O2SAT 94
[2018-12-23 02:30] VITALS: BP 119/80; PULSE 79; RESP 16; TEMP 37.2; O2SAT 94
[2018-12-23] MEDS: Enoxaparin 40 MG/0.4 ML Syringe SC (05:34)
[2018-12-23] MEDS: Acetaminophen 325 MG Tablet 650 MG PO (05:34)
[2018-12-23 05:36] LABS: Absolute Lymphocyte Count 2.58 X10^3/uL (0.83-4.51); Absolute Neutrophil Count 10.8 X10^3/uL (2.0-7.7); Basophil# 0.04 X10^3/uL; Basophil% 0.3 % (0-1); Eosinophil# 0.25 X10^3/uL; Eosinophils% 1.7 % (0-5); Hematocrit 30.3 % (37-47); Hemoglobin 10.3 g/dL (12.0-15.0); Lymphocyte # 2.58 X10^3/ul (4.0); Lymphocyte % 17.9 % (19-41); Mean Corpuscular Hgb 33.1 pg (27.0-32.0); Mean Corpuscular Volume 97.4 fL (81-99); Mean Platelet Vol. 10.9 fl (6.2-12.0); Monocyte# 0.71 X10^3/uL; Monocyte% 4.9 % (0-10); NRBC Flagged by Analyzer 0 % (0-5); Neutrophil # 10.75 X10^3/uL (2.7-7.7); Neutrophil % 74.7 % (47-70); POSITIVE MORPHOLOGY YES; Platelet Count 289 K/mm3 (150-450); RBC Distribution Width CV 12.8 % (11.6-14.6); RBC Distribution Width SD 45.8 fl (35.1-43.9); Red Blood Count 3.11 M/mm3 (4.2-5.4); White Blood Count 14.4 K/mm3 (4.4-11.0)
--- NOTE | 2018-12-23 06:12 | PCM.PN.SRG ---
Patient Problems: Active and Suspected Problems Acute appendicitis (Acute) Objective: Tolerating diet, flatus and loose stool Off of supplemental oxygen - Physical Exam Abdomen: Soft, Distended, Tender - wounds clean Vital Signs Temp Pulse Resp BP Pulse Ox 98.9 F 79 16 119/80 94 12/23/18 02:30 12/23/18 02:30 12/23/18 02:30 12/23/18 02:30 12/23/18 02:30 Oxygen Flow Rate (L/min) 2 Oxygen Delivery Method Room Air Weight: 142 lb 6.698 oz Body Mass Index (BMI) 26.9 Intake and Output for Last 24 Hours 12/21/18 12/22/18 12/23/18 23:59 23:59 23:59 Intake Total 3202 / 3202 580 / 580 405 / 405 Output Total 600 / 600 Balance 2602 / 2602 580 / 580 405 / 405 Laboratory Tests Past 24 Hrs 12/22/18 12/23/18 05:15 05:00 WBC 18.3 H Pending RBC 2.99 L Pending Hgb 9.7 L Pending Hct 29.2 L Pending MCV 97.7 Pending MCH 32.4 H Pending MCHC 33.2 Pending RDW Std Deviation 46.4 H Pending RDW Coeff of Michelle 13.0 Pending Plt Count 260 Pending MPV 11.4 Immature Gran % (Auto) 0.500 Neut % (Auto) 80.4 H Pending Lymph % (Auto) 12.6 L [place] % (Auto) 5.1 Eos % (Auto) 1.2 Baso % (Auto) 0.2 Absolute Neuts (auto) 14.7 H Pending Absolute Lymphs (auto) 2.31 Nucleated RBC % 0 Medical Necessity - Tobacco Use Smoking Status: Current every day smoker Assessment/Plan All Active Problems Acute appendicitis (Acute) Improved Await labs and plan discharge today
[2018-12-23 06:43] LABS: Differential Indicated SCAN CRITERIA MET
[2018-12-23 07:29] VITALS: BP 124/74; PULSE 76; RESP 18; TEMP 37; O2SAT 95
[2018-12-23 07:47] LABS: Platelet Estimate ADEQUATE (ADEQ)
--- NOTE | 2018-12-23 10:39 | PCM.DC.SUM ---
Discharge Date and Diagnosis Date of Admission: 12/18/18 Date of Discharge: 12/23/18 - Primary Discharge Diagnosis Acute appendicitis with feculent peritonitis and local perforation and stool feculent soilage Hospital Course and Treatment Operations: appendectomy - Laparoscopic Summary of Care Provided: The patient is a 38 year old F who presented with 1 week history of worsening abdominal pain. CT scan of the abdomen/pelvis demonstrated acute appendicitis. Dr. Hernandez performed a laparoscopic appendectomy on 12/18/2018. Patient tolerated the procedure well. Patient was found to have stool with in the abdominal cavity during the procedure which was cleansed and washed out. Patient required multiple days of IV antibiotics. Upon discharge, patient noted generalized abdominal soreness. She had positive flatus and BM's. She was tolerating a regular diet without nausea, vomiting. No fever. She had normal O2 saturation level on room air. - Physical Exam General: Alert, Oriented x3, Cooperative Abdomen: Soft, Distended - slightly, Tender - RLQ, - - Incisions c/d/i. No erythema or infection noted. Vital Signs Temp Pulse Resp BP Pulse Ox 98.6 F 76 18 124/74 H 95 12/23/18 07:29 12/23/18 07:29 12/23/18 07:29 12/23/18 07:29 12/23/18 07:29 Oxygen Flow Rate (L/min) 2 Oxygen Delivery Method Room Air Weight: 142 lb 6.698 oz Body Mass Index (BMI) 26.9 Intake and Output for Last 24 Hours 12/21/18 12/22/18 12/23/18 23:59 23:59 23:59 Intake Total 3202 / 3202 580 / 580 405 / 405 Output Total 600 / 600 Balance 2602 / 2602 580 / 580 405 / 405 Laboratory Tests Past 24 Hrs 12/23/18 05:00 WBC 14.4 H RBC 3.11 L Hgb 10.3 L Hct 30.3 L MCV 97.4 MCH 33.1 H MCHC 34.0 RDW Std Deviation 45.8 H RDW Coeff of Michelle 12.8 Plt Count 289 MPV 10.9 Immature Gran % (Auto) 0.500 Neut % (Auto) 74.7 H Lymph % (Auto) 17.9 L [place] % (Auto) 4.9 Eos % (Auto) 1.7 Baso % (Auto) 0.3 Absolute Neuts (auto) 10.8 H Absolute Lymphs (auto) 2.58 Nucleated RBC % 0 Platelet Estimate ADEQUATE Plt Morphology Comment NCNK Discharge Diet: Light diet - advance as tolerated - if you have questions about your diet instructions, please talk to you doctor. Discharge Activity: May Not Drive - for 3-5 days or while taking narcotic pain medicine. May shower in (days): 0 - May shower now Call your doctor if your incision/area has: Continuous Slow Oozing, Sudden Increased Bleeding, Increased Pain/ Swelling, Increased Redness, Foul Smelling Discharge Call your doctor if you observe: Fever of 101 or Higher Suture Line Care: Avoid Pulling/Pushing, Avoid Pinching/Bending Additional Dressing/Incision Instructions:: Change or remove dressing in 2 days. Leave steri-strips in place for 1 week. Home Medications: Medications to take at Discharge Amoxicillin/Potassium Clav [Augmentin 875-125 Tablet] 1 ea PO BID #10 tab 12/21/18 Hydrocodone Bitart/Apap 5-325 [Cranks 5MG-325MG] 1 tab PO Q4H PRN PRN 3 Days #10 tab 12/21/18 Following Prescrptions Were Given to Patient: Amoxicillin/Potassium Clav [Augmentin 875-125 Tablet] 1 ea PO BID #10 tab Transmission Status: Received by [facility] Hydrocodone Bitart/Apap 5-325 [Cranks 5MG-325MG] 1 tab PO Q4H PRN PRN 3 Days #10 tab PRN Reason: Pain Transmission Status: Received by [facility] Primary Care Physician: Ruben Yang,Out of [Primary Care Provider] - Please Follow Up With: Alfonso Hernandez MD - [phone] When: Call to make an appointment to be seen in about 7-10 days. Disposition: Home Minutes spent on discharge:: 20 Patient Condition:: Stable Medical Necessity - Tobacco Use Smoking Status: Current every day smoker Meaningful Use Info Meaningful Use Diagnoses (Choose all that apply): None applicable Code Visit Inpatient E&M: 54768 Disch Hosp
== END 2018-12-23 10:35 | disposition home or self-care (01) | DRG 340 ==
LOC: ED 20:43 → SDC 21:20 → MS3 21:23 → SDC 23:39
PROVIDERS: Physician Assistant; Admitting Provider Surgery; Emergency Provider Emergency Medicine; Visit Provider Surgery
PROC: 0DTJ4ZZ Resection of Appendix, Percutaneous Endoscopic Approach (ICD-10-PCS; CPT 44970; principal; 2018-12-18 21:45)
DX: K35.32 Acute appendicitis with perforation, localized peritonitis, and gangrene, without abscess (principal); K38.1 Appendicular concretions; F17.210 Nicotine dependence, cigarettes, uncomplicated
CPT/HCPCS: 36415; 74176; 80048; 80053; 81001; 84703; 85025; 88304; 99284; 99406; J7030; J7050; J7120; A4216; J0330; J2405

== ENCOUNTER → 2019-01-13 14:00 | Outpatient (CLI) | payer OTHER, SELFPAY ==
[2018-12-19 00:30] VITALS: BMI 26.9
[2019-01-13 14:28] LABS: Absolute Lymphocyte Count 3.14 X10^3/uL (0.83-4.51); Absolute Neutrophil Count 10.3 X10^3/uL (2.0-7.7); Basophil# 0.05 X10^3/uL; Basophil% 0.4 % (0-1); Eosinophil# 0.04 X10^3/uL; Eosinophils% 0.3 % (0-5); Hematocrit 39.4 % (37-47); Hemoglobin 12.8 g/dL (12.0-15.0); Lymphocyte # 3.14 X10^3/ul (4.0); Lymphocyte % 22.3 % (19-41); Mean Corp Hgb Conc 32.5 g/dL (32-36); Mean Corpuscular Hgb 32.4 pg (27.0-32.0); Mean Corpuscular Volume 99.7 fL (81-99); Mean Platelet Vol. 11.2 fl (6.2-12.0); Monocyte# 0.53 X10^3/uL; Monocyte% 3.8 % (0-10); NRBC Flagged by Analyzer 0 % (0-5); Neutrophil # 10.27 X10^3/uL (2.7-7.7); Neutrophil % 72.9 % (47-70); Platelet Count 254 K/mm3 (150-450); RBC Distribution Width CV 13.1 % (11.6-14.6); RBC Distribution Width SD 47.7 fl (35.1-43.9); Red Blood Count 3.95 M/mm3 (4.2-5.4); White Blood Count 14.1 K/mm3 (4.4-11.0)
[2019-01-13 14:30] LABS: Bacteria 0 SEEN /hpf (None Seen); Mucous, Urine 0 SEEN /hpf (<or=2+); White Blood Cells 0 SEEN /hpf (0-5)
[2019-01-13 14:34] LABS: Color, Urine Yellow (Yellow); Glucose, Dipstick Normal (Normal); Ketone-Dipstick Negative (Negative); Leukocyte Esterase-Dipstick Negative /ul (Negative); Nitrite-Dipstick Negative (Negative); Occult Blood-Urine 25 /ul (Negative); Protein-Dipstick Negative (Negative); Urine Bilirubin Dipstick Negative (Negative); Urine Clarity Sl. Cloudy (Clear); Urine Urobilinogen Normal (Normal)
[2019-01-13 14:42] LABS: Red Blood Cells-Urine 0-5 SEEN /hpf (0-5); Squamous Epithelial Cells - UA 0-5 SEEN /hpf (5-10)
[2019-01-13 14:42] LABS: Anion Gap 5 (5-15); BUN 6 mg/dL (7-18); BUN/Creat Ratio 8.1 RATIO (10-20); Calcium,Total 8.8 mg/dL (8.5-10.1); Chloride 110 mmol/L (98-107); Creatinine, Serum 0.74 mg/dL (0.55-1.02); EST Glomerular Filtration Rate 92 mL/min (>60); Est Glom Filt Rate - Afr Amer 111 mL/min (>60); Glucose 87 mg/dL (74-106); Potassium 4.5 mmol/L (3.5-5.1); Sodium Level 141 mmol/L (136-145)
== END ==
PROVIDERS: Referring Provider Physician Assistant; Visit Provider Physician Assistant
DX: R19.7 Diarrhea, unspecified (principal); R30.0 Dysuria
CPT/HCPCS: 36415; 80048; 81001; 83630; 85025; 87177; 87209; 87493; 87506

== ENCOUNTER → 2019-01-14 08:07 | Outpatient (CLI) | payer OTHER, SELFPAY ==
[2018-12-19 00:30] VITALS: BMI 26.9
--- NOTE | 2019-01-14 08:07 | CT_ITS ---
STUDY: CT ABDOMEN AND PELVIS WITH CONTRAST REASON FOR EXAM: Female, 38 years old. Lower abdominal pain and diarrhea. Recent appendectomy due to rupture. RADIATION DOSAGE (If Supplied By Facility): CTDIvol = ( 12.29 ) mGy, DLP = ( 660 ) mGycm TECHNIQUE: Transaxial images were obtained from the dome of the diaphragm to the symphysis pubis with oral contrast. 100 IV/Oral Isovue 300 was administered. Sagittal and coronal images were reconstructed. Individualized dose optimization techniques were used for this CT. COMPARISON: Comparison is made with prior examination dated December 18, 2018. FINDINGS: Minimal degree of linear atelectasis at the lung bases. The visualized portions of the heart are within normal limits. Stable 9.2 mm cyst in the lateral peripheral aspect of the right lobe of the liver. Mild degree of fatty infiltration of the liver. There are surgical clips in the gallbladder fossa consistent with a prior cholecystectomy. Normal spleen. Normal pancreas. Normal bilateral adrenal glands. Normal right kidney. Normal left kidney. Normal visualized stomach. Normal small intestine. Normal colon. There are surgical clips in the region of the appendix consistent with a prior appendectomy. Normal abdominal aorta. Normal inferior vena cava. Normal retroperitoneum. Normal urinary bladder. Dominant follicles are seen in both ovaries. Stable bilateral tubal ligation. There is a small umbilical hernia containing fat. Normal osseous structures. CT/Abdomen/Pelvis WITH Contrast IMPRESSION: Status post appendectomy. No acute abnormality is seen. Electronically Signed: Alan Rodriguez, at 8:51 EDT , Service support ,
[2019-01-14 08:15] VITALS: BP 126/72; PULSE 86; RESP 18; O2SAT 97
[2019-01-14] MEDS: Loratadine 10 MG Tablet PO (08:20)
--- NOTE | 2019-01-14 08:31 | NURSING ---
0815 pt has a known allergy to iodine, was premedicated with benedry and prednisone, pt does state now that she may have not gotten the am pills in her stomach before she started the oral prep witch caused her to throw up what was in her abd. pt delveloped sneezing, red hives to neck, with progressed to the back abd and lower legs. stat oral order for claritin 10mg po given
[2019-01-14 08:42] VITALS: BP 119/69; PULSE 76; RESP 18; O2SAT 97
[2019-01-14 09:30] VITALS: BP 123/77; PULSE 76; RESP 18; O2SAT 98
== END ==
PROVIDERS: Referring Provider Physician Assistant; Visit Provider Physician Assistant
DX: R10.9 Unspecified abdominal pain (principal)
CPT/HCPCS: 74177; Q9967; A4216

== ENCOUNTER → 2019-01-23 12:28 | Outpatient (CLI) | payer OTHER, SELFPAY ==
[2018-12-19 00:30] VITALS: BMI 26.9
[2019-01-23 13:01] LABS: Mean Corp Hgb Conc 32.5 g/dL (32-36); Mean Corpuscular Hgb 32.7 pg (27.0-32.0); Mean Corpuscular Volume 100.8 fL (81-99); Mean Platelet Vol. 10.5 fl (6.2-12.0); Platelet Count 253 K/mm3 (150-450); RBC Distribution Width CV 13.6 % (11.6-14.6); RBC Distribution Width SD 50.4 fl (35.1-43.9); Red Blood Count 3.97 M/mm3 (4.2-5.4); White Blood Count 15.5 K/mm3 (4.4-11.0)
== END ==
PROVIDERS: Referring Provider Physician Assistant; Visit Provider Physician Assistant
DX: K35.80 Unspecified acute appendicitis (principal)
CPT/HCPCS: 36415; 85027

== ENCOUNTER 2024-07-17 16:17 | Emergency (ER) | payer OTHER, SELFPAY ==
[2024-07-17 16:18] VITALS: BP 132/90; PULSE 110; RESP 16; TEMP 36.9; O2SAT 97; BMI 29.2
--- NOTE | 2024-07-17 16:23 | RAD_ITS ---
PROCEDURE: CHEST PA AND LATERAL REASON FOR EXAM: Cough TECHNIQUE: Frontal and lateral views of the chest. COMPARISON: None. FINDINGS: Cardiomediastinal silhouette is within normal limits. Lungs are clear. No sizable pneumothorax. Small calcified right lung granulomas. RAD/Chest PA and Lateral IMPRESSION: No acute airspace abnormality. Reading Location: [facility]
--- NOTE | 2024-07-17 17:36 | EKG12_ITS ---
Test Reason : GEN ILLNESS Blood Pressure : */* mmHG Vent. Rate : 77 BPM Atrial Rate : 77 BPM P-R Int : 142 ms QRS Dur : 76 ms QT Int : 384 ms P-R-T Axes : 47 22 46 degrees QTcB Int : 434 ms Normal sinus rhythm with sinus arrhythmia Normal ECG Confirmed by Marquise Clark ([id number]), newspaper editor managing [place] [place] ([id number]) on 07/21/2024 9:42:55 AM Referred By: Confirmed By: Marquise Clark
--- NOTE | 2024-07-17 17:38 | EDS_ITS ---
HPI History of Present Illness Chief Complaint: General Illness Narrative Narrative: Patient is a 44-year-old female past medical history of C. difficile who presents to the emergency department chief complaint of generalized not feeling well shortness of breath. Patient states that she has had fever and chills on and off and feels like she has had multiple sinus infections. She states that she has not seen her primary care physician in quite some time. Patient states that she does smoke and states that she was swabbed for strep throat recently and was negative she states that she was not tested for mono. She states that she has been sleeping a lot lately as well. Patient denies any sick contacts. Patient states that she has had her gallbladder and her appendix out. [facility] Medical History History of Clostridioides difficile infection (~12/2018) History of appendicitis Home Medications ?Medication ?Instructions ?Recorded ?Last Taken ?Type diphenhydramine HCl 25 mg capsule 25 mg PO ONCE #2 cap s 01/13/19 Unknown Rx (Benadryl) prednisone 50 mg tablet 50 mg PO TID contrast allerg y #3 01/13/19 Unknown Rx tabs prednisone 5 mg tablets in a dose 5 mg PO PER PKG DIR #21 tabs 01/14/19 Unknown Rx pack Allergy/AdvReac Type Severity Reaction Status Date / Time Iodinated Contrast Media Allergy Hives Verified 07/17/24 16:20 (Iodinated Contrast- Oral and IV Dye) Surgical History History of tubal ligation History of cholecystectomy History of appendectomy (~12/2018) History of incisional hernia repair Social History household members: spouse housing: house Smoking Status: Current some day smoker tobacco type: cigarettes ROS ROS ED ROS Narrative Constitutional: Complains of chills and generalized not feeling well denies headache, lightness, dizziness Eyes: Denies change in vision double vision blurry vision Cardiovascular: Denies chest pain or palpitations Respiratory: Complains of shortness of breath as noted above denies decree sputum production Abdomen: Denies abdominal pain nausea vomit diarrhea : Denies any urinary symptoms Neurological: Denies numbness, weakness, tingling Musculoskeletal: Denies back pain Skin: Denies rashes or lesions EXAM Physical Exam Narrative Exam Narrative: General: Patient lying in bed rest comfortably did not appear to be in acute distress Head: Atraumatic, normocephalic Eyes: PERRL bilaterally, EOMI bilateral, no conjunctival injection noted Neck: Soft, supple, trach midline Cardiovascular: Patient tachycardic with a regular rhythm no murmurs gallops rubs noted Respiratory: Clear to auscultation bilaterally Abdomen: No tenderness palpation, soft, nondistended Extremities: +5/5 strength noted in the bilateral upper and lower extremities, radial pulses +2/4 in the bilateral upper extremity Neurological: Patient follow commands knew that she was at [facility] years 2024 Skin: Warm, dry, intact no rashes or lesions noted Const Vital Signs: 07/17/24 16:18 07/17/24 17:31 Temperature 98.4 F Temperature Source Temporal Pulse Rate 110 H Respiratory Rate 16 Respiratory Effort Normal Non-Labored Respiratory Pattern Normal Blood Pressure 132/90 H Blood Pressure Mean 104 Pulse Ox 97 Oxygen Delivery Method Room Air MDM MDM MDM Narrative Medical decision making narrative: Patient is a 44-year-old female who presented to the emergency department with chief complaint of generalized illness not feeling well. On the differential diagnose includes but not limited to mono, COVID, flu, PE, pneumonia, pneumothorax. Once workup is obtained reviewed she will be reevaluated. Patient be given Bentyl.. Left hip pain patient CBC reviewed and showed a white cell count of 14,000 she has chronically elevated white blood cell count, hemoglobin stable 15.2, platelet count normal at 295. Patient sodium normal 136, potassium 3.9, creatinine normal at 0.89. Anion gap normal at 12. Patient's AST and ALT were 26 and 32 respectively with a normal total bilirubin of 1.06. Patient lipase normal at 33. Patient TSH normal at 0.69 with a free T4 and T3 normal lytic lesion at 1.50 and 2.9 respectively. Patient urinalysis reviewed showed no evidence infection monoscreen negative. I did add on a D-dimer which was normal at 0.37. Patient tested negative for COVID flu RSV. Patient chest x-ray reviewed by myself and by radiology showed no acute cardiopulmonary processes. On reevaluation patient she is feeling better she would like to go home at this point time. Discussed results with her and significant other at bedside. Patient is advised to follow-up with her primary care physician outpatient setting and return with worsening symptoms or concerns. She is agreeable to plan all question concerns answered she was discharged home in stable condition. Lab Data Labs: Laboratory Results - last 24 hr 07/17/24 07/17/24 17:45 18:52 WBC 14.9 H RBC 4.69 Hgb 15.2 H Hct 45.3 MCV 96.6 MCH 32.4 H MCHC 33.6 RDW Std Deviation 47.4 H RDW Coeff of Michelle 13.3 Plt Count 295 MPV 11.2 Immature Gran % (Auto) 0.500 Neut % (Auto) 59.7 Lymph % (Auto) 31.6 [place] % (Auto) 7.2 Eos % (Auto) 0.7 Baso % (Auto) 0.3 Absolute Neuts (auto) 8.9 H Absolute Lymphs (auto) 4.69 H Nucleated RBC % 0 D-Dimer Quant (PE/DVT) 0.37 Sodium 136 Potassium 3.9 Chloride Direct 102 Carbon Dioxide 21.3 L Anion Gap 12 BUN 14 Creatinine 0.89 Estim Creat Clear Calc 70.72 Est GFR (MDRD) Non-Af 81 BUN/Creatinine Ratio 15.5 Glucose 106 H Calcium 9.7 Total Bilirubin 1.06 AST 26 ALT 32 Alkaline Phosphatase 101 Total Protein 7.6 Albumin 4.3 Globulin 3.4 Albumin/Globulin Ratio 1.3 Lipase 33 TSH 0.698 Free T4 1.50 H Free T3 pg/dL 2.9 Urine Color Yellow Urine Clarity Clear Urine pH 6.0 Ur Specific [place] 1.010 Urine Protein 30 H Urine Glucose (UA) Normal Urine Ketones Negative Urine Occult Blood 25 H Urine Nitrite Negative Urine Bilirubin Negative Urine Urobilinogen Normal Ur Leukocyte Esterase Negative Urine RBC 0 SEEN Urine WBC 0 SEEN Ur Squamous Epith Cells 0-5 SEEN Urine Bacteria 0 SEEN Urine Mucus 0 SEEN Monoscreen Negative Radiography Diagnostic Testing: Clinical Impression(s) from Imaging Studies Chest X-Ray 07/17/24 16:23 IMPRESSION: No acute airspace abnormality. [facility] Dis[facility] Plan Triage Chief Complaint: General Illness ED Provider: Ney Jain Dx/Rx/DC Orders Clinical Impression: Generalized weakness, Cough Prescriptions: No Action prednisone 50 mg tablet 50 mg PO TID Qty: 3 0RF Rx Instructions: Take 1 50 mg tablet at 1900, 0100 and 0700 hour prior to the procedure or exam diphenhydramine HCl [Benadryl] 25 mg capsule 25 mg PO ONCE Qty: 2 0RF Rx Instructions: Take 2 tablets 1 hour before your test prednisone 5 mg tablets,dose pack 5 mg PO PER PKG DIR Qty: 21 0RF Rx Instructions: Take as directed per package Primary Care Provider: Azar Woodard Referrals: Care Physician,No Primary [Non-Staff] - Activity Restrictions/Additional Instructions: Follow-up your primary care physician outpatient setting. Your blood work here today was largely normal. Your thyroid was normal, kidney function is normal no evidence of blood clots your chest x-ray did not show pneumonia. Continue supportive care and start with bland diet advance as tolerated. Return with any other concerns Print Language: Tanzanian Disposition Disposition: Home, Self Care
[2024-07-17] MEDS: 0.9% Normal Saline (1000mL) 1,000 ML 999 ML IV (17:50)
[2024-07-17] MEDS: Dicyclomine 10 MG Capsule 20 MG PO (17:50)
[2024-07-17 17:54] LABS: Bacteria 0 SEEN /hpf (None Seen); Mucous, Urine 0 SEEN /hpf (<or=2+); White Blood Cells 0 SEEN /hpf (0-5)
[2024-07-17 17:59] LABS: Absolute Lymphocyte Count 4.69 X10^3/uL (0.83-4.51); Absolute Neutrophil Count 8.9 X10^3/uL (2.0-7.7); Basophil# 0.04 X10^3/uL; Basophil% 0.3 % (0-1); Eosinophils% 0.7 % (0-5); Hematocrit 45.3 % (37-47); Hemoglobin 15.2 g/dL (12.0-15.0); Lymphocyte # 4.69 X10^3/ul (0.83-4.51); Lymphocyte % 31.6 % (19-41); Mean Corp Hgb Conc 33.6 g/dL (32-36); Mean Corpuscular Hgb 32.4 pg (27.0-32.0); Mean Corpuscular Volume 96.6 fL (81-99); Mean Platelet Vol. 11.2 fl (6.2-12.0); Monocyte# 1.07 X10^3/uL; Monocyte% 7.2 % (0-10); NRBC Flagged by Analyzer 0 % (0-5); Neutrophil # 8.88 X10^3/uL (2.7-7.7); Neutrophil % 59.7 % (47-70); Platelet Count 295 K/mm3 (150-450); RBC Distribution Width CV 13.3 % (11.6-14.6); RBC Distribution Width SD 47.4 fl (35.1-43.9); Red Blood Count 4.69 M/mm3 (4.2-5.4); White Blood Count 14.9 K/mm3 (4.4-11.0)
[2024-07-17 18:01] LABS: Color, Urine Yellow (Yellow); Glucose, Dipstick Normal (Normal); Ketone-Dipstick Negative (Negative); Leukocyte Esterase-Dipstick Negative /ul (Negative); Nitrite-Dipstick Negative (Negative); Occult Blood-Urine 25 /ul (Negative); Protein-Dipstick 30 mg/dl (Negative); Urine Bilirubin Dipstick Negative (Negative); Urine Clarity Clear (Clear); Urine Urobilinogen Normal (Normal)
[2024-07-17 18:11] LABS: Red Blood Cells-Urine 0 SEEN /hpf (0-5); Squamous Epithelial Cells - UA 0-5 SEEN /hpf (5-10)
[2024-07-17 18:22] LABS: Internal QC Validated? YES +Cl - CLEAR BKGD; Monotest Negative (Negative); Record Kit Lot#, Mono 13241430
[2024-07-17 18:32] LABS: ALB/GLOB Ratio 1.3 RATIO (0.9-2.4); AST(SGOT) 26 U/L (<=31); Alanine Aminotransfer ALT/SGPT 32 U/L (<=34); Albumin, Serum 4.3 g/dL (3.5-5.0); Alkaline Phosphatase 101 U/L (35-104); Anion Gap 12 (5-15); BUN 14 mg/dL (4-19); BUN/Creat Ratio 15.5 RATIO (10-20); Calcium 9.7 mg/dL (7.6-11.0); Carbon Dioxide 21.3 mmol/L (22.0-29.0); Chloride 102 mmol/L (96-108); Creatinine, Serum 0.89 mg/dL (0.70-1.20); EST Glomerular Filtration Rate 81 (>60); Estimated Creatinine Clearance 70.72 ml/min; Free T3 2.9 pg/mL (2.18-3.98); Globulin 3.4 g/dL (2.2-4.2); Glucose 106 mg/dL (70-99); Lipase 33 U/L (13-75); Potassium 3.9 mmol/L (3.3-5.1); Protein, Total 7.6 g/dL (5.9-8.4); Sodium Level 136 mmol/L (133-145); Thyroid Stim Hormone (TSH) 0.698 uIU/mL (0.300-4.200); Total Bilirubin 1.06 mg/dL (0.00-1.30)
[2024-07-17 19:11] LABS: D-Dimer Quantitative (DVT/PE) 0.37 FEU/ug/m (0.27-0.49)
[2024-07-17 19:51] VITALS: BP 132/90; PULSE 110; RESP 16; TEMP 36.9; O2SAT 97
== END 2024-07-17 19:59 | disposition home or self-care (01) ==
PROVIDERS: Emergency Provider Emergency Medicine; PCP Physician Assistant; Visit Provider Emergency Medicine
DX: R53.1 Weakness (principal); R05.9 Cough, unspecified; R06.02 Shortness of breath; F17.210 Nicotine dependence, cigarettes, uncomplicated
CPT/HCPCS: 71046; 80053; 81001; 83690; 84439; 84443; 84481; 85025; 85379; 86308; 87631; 93005; 96360; 99283; A4216